=== PATIENT | male | born 1980 | race African-American/Black ===

== ENCOUNTER 2018-11-02 11:40 | Emergency (ER) | payer OTHER ==
[2018-11-02] MEDS ORDERED: IBUPROFEN 800 MG TABLET PO ONE (13:44)
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
[2018-11-02 14:50] LABS: URINE AMPHETAMINES SCREEN NEGATIVE; URINE BARBITURATES SCREEN NEGATIVE; URINE BENZODIAZEPINES SCREEN NEGATIVE; URINE COCAINE SCREEN NEGATIVE; URINE MARIJUANA (THC) SCREEN NEGATIVE; URINE METHADONE SCREEN NEGATIVE; URINE PHENCYCLIDINE SCREEN NEGATIVE
[2018-11-02 15:01] LABS: ABSOLUTE EOSINOPHILS # (AUTO) 0.3 10^3/uL (0.0-0.6); ABSOLUTE LYMPHOCYTES (AUTO) 3.7 10^3/uL (0.5-4.7); ABSOLUTE MONOCYTES (AUTO) 0.7 10^3/uL (0.1-1.4); ABSOLUTE NEUT (AUTO) 4.1 10^3/uL (1.7-8.2); BASOPHILS % (AUTO) 0.4 % (0-2); EOSINOPHILS % (AUTO) 3.4 % (0-6); HEMATOCRIT 39.2 % (37.9-51.0); HEMOGLOBIN 13.6 g/dL (13.5-17.0); MEAN CORPUSCULAR HEMOGLOBIN 31.3 pg (27.0-33.4); MEAN CORPUSCULAR HGB CONC 34.8 g/dL (32.0-36.0); MEAN CORPUSCULAR VOLUME 90 fl (80-97); MONOCYTES % (AUTO) 7.7 % (3-13); PLATELET COUNT 280 10^3/uL (150-450); RED BLOOD COUNT 4.35 10^6/uL (4.35-5.55); RED CELL DISTRIBUTION WIDTH 13.6 % (11.5-14.0); SEGMENTED NEUTROPHILS % (AUTO) 46.5 % (42-78); TOTAL CELLS COUNTED % (AUTO) 100 %; WHITE BLOOD COUNT 8.8 10^3/uL (4.0-10.5)
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
[2018-11-02 15:25] LABS: CREATINE KINASE MB 4.95 ng/mL (<4.55)
[2018-11-02 15:26] LABS: TROPONIN I < 0.012 ng/mL
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
[2018-11-02 17:08] VITALS: BP 145/86
--- NOTE | 2018-11-03 12:59 | EKG REPORT ---
SEVERITY:- ABNORMAL ECG - SINUS RHYTHM ABNORMAL T, CONSIDER ISCHEMIA, DIFFUSE LEADS : Confirmed by: Liat Wolff 03-Nov-2018 12:58:14
== END 2018-11-02 17:08 | disposition home or self-care (01) ==
LOC: ER 11:40
DX: M54.2 Cervicalgia (principal); M54.9 Dorsalgia, unspecified; M25.511 Pain in right shoulder; R07.9 Chest pain, unspecified; V43.52XA Car driver injured in collision with other type car in traffic accident, initial encounter
CPT/HCPCS: 36415; 71046; 71275; 72070; 72110; 72125; 80307; 82550; 82553; 84484; 85025; 93005; 93010; 99284

== ENCOUNTER 2019-04-18 19:21 | Emergency (ER) | payer OTHER ==
--- NOTE | 2019-04-18 19:52 | ER Document Report ---
Addendum entered and electronically signed by KINDRA DEGROOT FNP-C 04/18/19 21:07: Discharge - Discharge Clinical Impression: Right ankle sprain Condition: Stable Disposition: HOME, SELF-CARE Instructions: Heriberto Wrap ([facility]), Ankle Stirrup Splint ([facility]), Ice & Elevation ([facility]), Ice Packs ([facility]), Splint Precautions ([facility]), Sprained Ankle ([facility]) Prescriptions: Naproxen 500 mg PO BID #10 tablet Forms: Return to Work Referrals: IDA RODNEY MD [ACTIVE PROVISIONAL STAFF] - Follow up as needed ADEOLA YOON MD [COMMUNITY BASED STAFF] - Follow up as needed Addendum entered and electronically signed by KINDRA DEGROOT FNP-C 04/18/19 21:07: Course - Re-evaluation Re-evalutation: 04/18/19 21:06 HPI: 38 yr old presents for right ankle pain after tripping x 3 days ago. no n/t to ankle, legs. no otc meds needs, minimal pain. employer made him come for evalua tion. no otc meds. able to bear full weight , - Vital Signs Vital signs: Temp Pulse Resp BP Pulse Ox 98.9 F 53 L 16 155/93 H 99 04/18/19 19:45 04/18/19 19:45 04/18/19 19:45 04/18/19 19:45 04/18/19 19:45 Original Note: HPI - HPI Time Seen by Provider: 04/18/19 19:30 Pain Level: 3 Notes: 3 - ROS ROS Unobtainable: Yes ROS unobtainable due to patient's medical condition Past Medical History - General Information source: Patient - Social History Smoking Status: Unknown if Ever Smoked Family History: Reviewed & Not Pertinent, CVA Pulmonary Medical History: Reports: Hx Asthma, Hx Bronchitis Endocrine Medical History: Denies: Hx Diabetes Mellitus Type 1, Hx Diabetes Mellitus Type 2 Renal/ Medical History: Denies: Hx Peritoneal Dialysis Psychiatric Medical History: Denies: Hx Anxiety - Immunizations Immunizations up to date: No Hx Diphtheria, Pertussis, Tetanus Vaccination: No Vertical Provider Document - CONSTITUTIONAL Agree With Documented VS: Yes Exam Limitations: No Limitations Notes: PHYSICAL EXAMINATION: GENERAL: Well-appearing, well-nourished and in no acute distress. HEAD: Atraumatic, normocephalic. EYES: Pupils equal round and reactive to light, extraocular movements intact, sclera anicteric, conjunctiva are normal. ENT: Nares patent, oropharynx clear without exudates. Moist mucous membranes. NECK: Normal range of motion, supple without lymphadenopathy LUNGS: Breath sounds clear to auscultation bilaterally and equal. No wheezes rales or rhonchi. HEART: Regular rate and rhythm without murmurs ABDOMEN: Soft, nontender, nondistended abdomen. No guarding, no rebound. No masses appreciated. Musculoskeletal: Normal range of motion, no pitting or edema. No cyanosis. right ankle with swelling, tenderness on lateral aspect of ankle. pain with inversion. squeeze test negative. dtr +2 BLE. Limited APROM. distal pulses + 2 BLE equally. Full motor and sensory function of bilateral lower extremities. No noted open wounds or abrasion. Normal gait. No vascular compromise. Peroneal nerve is intact with strong eversion and plantar flexion. Negative anterior drawer test. NEUROLOGICAL: Cranial nerves grossly intact. Normal speech, normal gait. Normal sensory, motor exams PSYCH: Normal mood, normal affect. SKIN: Warm, Dry, normal turgor, no rashes or lesions noted. - INFECTION CONTROL TRAVEL OUTSIDE OF THE [place] IN LAST 30 DAYS: No Course - Re-evaluation Re-evalutation: 04/18/19 20:46 Vitals vitals. Nursing notes reviewed. Negative for any acute fracture dislocation. Apply ice 20 minutes on 20 minutes off several times a day, elevate above level of heart. Use Heriberto bandage. Follow-up with entry specialist as needed. After performing a Medical Screening Examination, I estimate there is LOW risk for OPEN FRACTURE, COMPARTMENT SYNDROME, DEEP VENOUS THROMBOSIS, ACUTE TENDON RUPTURE, or NEUROVASCULAR INJURY thus I consider the discharge disposition reasonable. I have reevaluated this patient multiple times and no significant life threatening changes are noted. The patient and I have discussed the diagnosis and risks, and we agree with discharging home to closely follow-up with their primary doctor or the referral orthopedist with the understanding that symptoms and presentations can change. We also discussed returning to the Emergency Department immediately if new or worsening symptoms occur. We have discussed the symptoms which are most concerning (e.g., changing or worsening pain, numbness, weakness) that necessitate immediate return Discharge - Discharge Clinical Impression: Right ankle sprain Condition: Stable Disposition: HOME, SELF-CARE Instructions: Heriberto Wrap ([facility]), Ankle Stirrup Splint ([facility]), Ice & Elevation ([facility]), Ice Packs ([facility]), Splint Precautions ([facility]), Sprained Ankle ([facility]) Prescriptions: Naproxen 500 mg PO BID #10 tablet Referrals: IDA RODNEY MD [ACTIVE PROVISIONAL STAFF] - Follow up as needed ADEOLA YOON MD [COMMUNITY BASED STAFF] - Follow up as needed
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
[2019-04-18 21:08] VITALS: BP 139/92
== END 2019-04-18 21:09 | disposition home or self-care (01) ==
LOC: ER 19:21
DX: S93.401A Sprain of unspecified ligament of right ankle, initial encounter (principal); X58.XXXA Exposure to other specified factors, initial encounter; J45.909 Unspecified asthma, uncomplicated
CPT/HCPCS: 99283